=== PATIENT | female | born 1960 | race Caucasian/White ===

== ENCOUNTER 2022-08-17 14:52 | Outpatient (CLI) | payer OTHER, SELFPAY ==
--- NOTE | 2022-08-17 15:00 | CRLHL7_ITS ---
For Patients: As a result of the Century Cures Act, medical imaging exams and procedure reports are released immediately into your electronic medical record. You may view this report before your referring provider. If you have questions, please contact your health care provider. BILATERAL SCREENING MAMMOGRAM WITH COMPUTER-AIDED DETECTION AND TOMOSYNTHESIS TECHNIQUE: CC and MLO views were obtained. These mammographic images have been obtained using full-field digital technique. These mammographic images were interpreted with the benefit of computer-aided detection. Breast Tomosynthesis was used in this interpretation. COMPARISON FILM: 06/18/21, 05/23/20, 03/23/19. FINDINGS: The breasts are heterogeneously dense, which may obscure small masses IMPRESSION: There is no radiographic evidence for malignancy. ASSESSMENT: BI-RADS Category 1: Negative RECOMMENDATION: Routine screening mammogram in 1 year. A lay language report of this examination will be provided to the patient. Dylan Drake M.D. Diagnostic Radiologist [email or web address] JOSE/Dictated by: Dylan Drake MD @ 08/18/2022 9:09:00 AM (Electronically Signed)
== END 2022-08-17 14:53 | disposition home or self-care (01) ==
LOC: MAMMO 14:53
PROVIDERS: PCP Family Medicine; Visit Provider Family Medicine
DX: Z12.31 Encounter for screening mammogram for malignant neoplasm of breast (principal); R92.2 Inconclusive mammogram
CPT/HCPCS: 77063; 77067

== ENCOUNTER 2023-08-24 15:05 | Outpatient (CLI) | payer OTHER, SELFPAY ==
--- NOTE | 2023-08-24 15:20 | CRLHL7_ITS ---
For Patients: As a result of the Cures Act, medical imaging exams and procedure reports are released immediately into your electronic medical record. You may view this report before your referring provider. If you have questions, please contact your health care provider. BILATERAL SCREENING MAMMOGRAM WITH COMPUTER-AIDED DETECTION AND TOMOSYNTHESIS TECHNIQUE: CC and MLO views were obtained. These mammographic images have been obtained using full-field digital technique. These mammographic images were interpreted with the benefit of computer-aided detection. Breast Tomosynthesis was used in this interpretation. COMPARISON FILM: 08/17/22, 06/18/21, 05/23/20. FINDINGS: The breasts are heterogeneously dense, which may obscure small masses IMPRESSION: There is no radiographic evidence for malignancy. ASSESSMENT: BI-RADS Category 1: Negative RECOMMENDATION: Routine screening mammogram in 1 year. A lay language report of this examination will be provided to the patient. Dylan Drake M.D. Diagnostic Radiologist [email or web address] BING/beverley / be/Dictated by: Dylan Drake MD @ 08/25/2023 12:50:00 PM (Electronically Signed)
== END 2023-08-24 15:06 | disposition home or self-care (01) ==
PROVIDERS: PCP Family Medicine; Visit Provider Family Medicine
DX: Z12.31 Encounter for screening mammogram for malignant neoplasm of breast (principal); R92.2 Inconclusive mammogram
CPT/HCPCS: 77063; 77067

== ENCOUNTER 2024-09-20 14:18 | Outpatient (CLI) | payer OTHER, MEDICARE, SELFPAY ==
--- NOTE | 2024-09-20 14:40 | CRLHL7_ITS ---
For Patients: As a result of the Century Cures Act, medical imaging exams and procedure reports are released immediately into your electronic medical record. You may view this report before your referring provider. If you have questions, please contact your health care provider. BILATERAL SCREENING MAMMOGRAM WITH COMPUTER-AIDED DETECTION AND TOMOSYNTHESIS TECHNIQUE: CC and MLO views were obtained. These mammographic images have been obtained using full-field digital technique. These mammographic images were interpreted with the benefit of computer-aided detection. Breast Tomosynthesis was used in this interpretation. COMPARISON FILM: 08/24/23, 08/17/22, 06/18/21. FINDINGS: The breasts are heterogeneously dense, which may obscure small masses IMPRESSION: There is no radiographic evidence for malignancy. ASSESSMENT: BI-RADS Category 1: Negative RECOMMENDATION: Routine screening mammogram in 1 year. A lay language report of this examination will be provided to the patient. Dylan Drake M.D. Diagnostic Radiologist [email or web address] JOSE/Dictated by: Dylan Drake MD @ 09/21/2024 10:12:00 AM (Electronically Signed)
== END 2024-09-20 14:19 | disposition home or self-care (01) ==
LOC: MAMMO 14:26
PROVIDERS: PCP Family Medicine; Visit Provider Family Medicine
DX: Z12.31 Encounter for screening mammogram for malignant neoplasm of breast (principal); R92.333 Mammographic heterogeneous density, bilateral breasts
CPT/HCPCS: 77063; 77067

== ENCOUNTER 2024-12-13 15:00 | Outpatient (RCR) | payer MEDICARE, BC, SELFPAY ==
--- OUTSIDE RECORDS SUMMARY | 2024-11-29 12:55 | XMS_ITS | Clinical Summary ---
Author Organization [employer] [facility] Address [place], [place] [address] Care Team Providers Care Consulting Actuary Name Role Phone Rena Olivier MD Unavailable [phone] Renay Hart DO Primary Care Provider [phone] Allergies No known active allergies Medications DMEIndications:C ongenital absence of arm and forearm, left Left upper extremity prosthesis 1 unit 0 6 Active ibuprofen (ADVIL; MOTRIN) 200 mg tablet Take 3-4 tablets by mouth every 6 hours if needed for Pain. 0 8 Active multivitamin capsule Take 1 capsule by mouth once daily. 0 8 Active zinc 50 mg tablet Take 1 tablet by mouth once daily. 0 8 Active ygoi-mnpl-xvo-thompson e-qiq-aoxa-hor [id number] mg tab Take by mouth. 0 8 Active clobetasol cream 0.05% (TEMOVATE) 0.05 % cream APPLY SPARINGLY TO AFFECTED AREA TWICE DAILY 0 Active fluorouracil 5% topical (EFUDEX) 5 % cream APPLY TOPICALLY ONCE WEEKLY 0 Active estradioL (VAGIFEM) 10 mcg tab vaginal tabletIndication s:Menopausal vaginal dryness INSERT 1 TABLET BY VAGINAL ROUTE EVERY TUESDAY AND TUESDAY 24 Tablet 2 4 Active polyethylene glycol-electroly te (GOLYTELY) 236-22.74-6.74 -5.86 gram suspensionIndica tions:Encounter for screening colonoscopy Drink 2 liters the day before the procedure and 2 liters 6 hours prior to procedure. 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 Adenomatous colon polyp 11/13/2019 Overview (11/13/2019): Colonoscopy 10/2019 polyp, repeat in 5 years DJD (degenerative joint disease) 06/28/2014 Onychomycosis 03/17/2011 Diverticulosis of colon (without mention of hemo rrhage) 12/15/2009 Resolved Problems Problem Noted Date Diagnosed Date Resolved Date Screen for colon cancer 12/15/200903/2023 Overview (12/15/2009): Colonoscopy 11/2009 diverticulosis repeat in 10 years Encounters Date Type Department Care Team Description 11/26/2024 Orders Only [facility] Scanner 1 scan: (1-Ord) TAREEN DERM, EXCISION COMPOUND NEVUS, 11/26/2024 10/23/2024 Telephone [facility] [address] [facility] [place] [address] Sami Duque MD Screening 10/16/2024 3:[address] SQL DEVELOPER Ancillary Procedure [facility] [address] [facility] [place] [address] 10/16/2024 Travel 10/16/2024 Orders Only [facility] [address] [facility] [place] [address] Sami Duque MD <No scans attached> 10/15/2024 Orders Only [facility] Scanner 1 scan: (1-Ord) TAREEN DERMATOLOGY, CURETTAGE and DESTRUCTION, 10/15/2024 10/11/2024 Travel 10/04/2024 Telephone [facility] [address] [place] [address] Renay Hart, DO 09/24/2024 Orders Only [facility] [address] [place] [address] Renay Hart, 1 scan: (1-Ord) [facility], BILAT SCREENING CAD AND NANNETTE, 09/20/2024 09/14/2024 8:20 AM CDT Office Visit [facility] [address] [place] [address] Renay Hart, Medicare WELCOME Visit 09/14/2024 Telephone [facility] [address] [place] [address] Renay Hart, Returning Call 09/14/2024 Telephone [facility] [address] [place] [address] Renay Hart, Appointment 09/14/2024 Travel 09/10/2024 Orders Only [facility] Scanner 1 scan: (1-Ord) TAREEN DERMATOLOGY , SHAVE BIOPSY; FULL BODY SKIN EXAM , 09/10/2024 09/09/2024 Travel from Last 3 Months Immunizations Name Administration Dates Next Due Hepatitis A (Adult) 08/30/2002,01/29/2002 Hepatitis B (Adult) 08/30/2002,04/02/2002,2001 Influenza A (H1N1), Inactiva julianna (Age >=3 Years) 09/30/2009 Influenza, IIV3 (Age 6-35 mos) 08/19/2011 Influenza, IIV3 (Age >=3 years) 08/08/2015,08/19,09/09/2009 Influenza, IIV4 08/29/2020, 9,10/25/2018,2016 Influenza, IIV4 (=>6mos) MDV 09/06/2017,10/06/20 16 Influenza,CCIIV4 PRESERV FREE 12/04/2021 Td (Age >=7 Years) 11/30/2019,04/03/1998 Tdap 08/04/2010 Zoster (Shingrix-RZV, recombinant) 07/29/2022, Family History Medical History Relation Name Comments No Known Problems Brother Heart Disease Father first IA in 40 s Other Father copd Other Mother lung, kidney ca ncer No Known Problems Sister 1 No Known Problems Sister 2 Relation Name Status Comments Brother Alive Father Mother Sister 1 Alive Sister 2 Alive Social History Tobacco Use Types Packs/Day Years Used Date Smoking Tobacco: Former Cigarettes 0.3 31 0 11/28/1977 - 11/28/2008 Smokeless Tobacco: Never Tobacco Cessation:Counseling Given: Not Answered Comments:Patient states a few cigarettes weekly. Alcohol Use Standard Drinks/Week Comments Yes 7 (1 standard drink = 0.6 oz pur e alcohol) [facility] Utilities Answer Date Recorded Do you have trouble paying f or utilities (for example, heat, electricity, water, phone)? Yes 09/14/2024 PHQ-2 Answer Date Recorded PHQ-2 TOTAL SCORE 0 09/14/2024 Social Connections Answer Date Recorded Do you often feel lonely or isolated from those around you? 0 09/14/2024 Financial Resource Strain Answer Date R ecorded Difficulty of Paying Living Expenses 3 09/14/2024 Difficulty of Paying Living Expenses Not on file 09/14/2024 Food Insecurity Answer Date Recorded Do you worry your food will run out before you are able to buy more? 1 09/14/2024 Transportation Needs Answer Date Record ed Does lack of transportation keep you from medica l appointments? 1 09/14/2024 Does lack of transportation keep you from work, meetings or getting things that you need? 1 09/14/2024 Housing Stability Answer Date Recorded What is your housing situation today? 1 09/14/2024 Comments No Sex and Gender Information Value Date Recorded Sex Assigned at Not on file Legal Sex Female 5:[address] SQL DEVELOPER Gender Identity Not on file Sexual Orientation Not on file Obstetrics History Para Term AB IAB SAB Ectopic Multiple Livin g Live Births 0 0 0 0 0 0 0 0 0 0 0 Last Filed Vital Signs Vital Sign Reading Time Taken Comments Blood Pressure 134/80 09/14/2024 8:13 AM CDT Pulse 76 09/14/2024 8:13 AM CDT Temperature 36.7 C (98.1 F) 08/29/2020 7:51 AM CDT Respiratory Rate 16 07/20/2019 8:34 AM CDT Oxygen Saturation 99% 09/01/2023 3:58 PM CDT Inhaled Oxygen Concentration - - Weight 78.1 kg (172 lb 3.2 oz) 09/14/2024 8:13 A M CDT Height 169 cm (5' 6.54) 09/14/2024 8:13 AM CDT Body Mass Index 27.35 09/14/2024 8:13 AM CDT Plan of Treatment Upcoming Encounters Date Type Department Care Team (Late st Contact Info) Description 01/28/2025 3:[address] SQL DEVELOPER Office Visit [facility] [address] [place] [address] Renay Hart DO [address] [place] [address] 02/01/2025 7:[address] SQL DEVELOPER Office Visit [facility] [address] [place] [id number] Sami Duque MD [address] [place] [address] Health Maintenance Due Date Last Done Comments Pneumococcal series for age 50+ (1 of 1 - PCV) 2009 Medicare Wellness for age 65+ 2024 COVID-19 vaccine series ( season) 2024 03/05/2021, 02/05/2021 Influenza for age 65+ 07/29/2024 12/04/2021 , 08/29/2020, 11/08/2019, Additional history exists Colonoscopy through age 75 11/12/202411/12, 11/12/2019, 11/09/2019, Additional history exists BMI (ht and wt on same day) for age 18+ 09/14/2025 09/14/2024, 09/01/2023, 10/11/2022, Additional history exists Depression screening for age 12+ 09/14/2025 09/14/2024, 10/15/2021, 08/29/2020, Additional history exists Mammogram for age 45-75 09/20/2025 09/20/20, 08/24/2023, 08/17/2022, Additional history exists Lipids for age 45-75 09/14/2029 09/14/2024, 09/01/2023, 10/11/2022, Additional history exists Tetanus booster 11/30/2029 11/30/2019, 05/2010, 04/03/1998 RSV vaccine for adults or (1 - 1-dose 75+ series) 2034 Tdap Completed 08/04/2010 Hepatitis C screening for ag e 18-79 Completed 10/15/2021 Zoster (shingles) series for age 50+ Completed 07/29/2022, 04/02/2022 HIV for age 15-65 Completed 09/01/2023 DEXA/DXA scan for age 65+ Completed 10/16/2024 Procedures Procedure Name Priority Date/Time Associated Diagnosis Comments SCAN-OPERATIVE/PROC EDURE REPORT 11/26/2024 12:[address] SQL DEVELOPER XR DXA BONE DENSITY 2 SITES AXIAL Routine 10/16/2024 3:[address] SQL DEVELOPER Postmenopausal SCAN-OPERATIVE/PROC EDURE REPORT 10/15/2024 12:[address] SQL DEVELOPER XR MAMMO NANNETTE BILAT SCREEN Routine 09/20/2024 12:00 AM CDT Breast cancer screening by mammogram GLUCOSE, FASTING Routine 09/14/2024 8:50 AM CDT Routine general medical examination at a health care facility LIPID PANEL W REFLEX MEASURED LDL Routine 09/14/2024 8:50 AM CDT Hyperlipidemia, unspecified hyperlipidemia type SCAN-OPERATIVE/PROC EDURE REPORT 09/10/2024 12:00 AM CDT ANTI HIV 1/2 Routine 09/01/2023 4:22 PM CDT Screening for HIV (human immunodeficiency virus) ANTI HCV Routine 10/15/2021 10:[address] SQL DEVELOPER Need for hepatitis C screening test COLONOSCOPY SCREENING Routine 11/12/2019 12:[address] SQL DEVELOPER Special screening for malignant neoplasms, colon from Last 3 Months or Most Recently Relevant to Health Maintenance Results * SCAN-OPERATIVE/PROCEDURE REPORT (11/26/2024 12:[address] SQL DEVELOPER) us Scanner OTHER Final Result * (ABNORMAL) XR DXA BONE DENSITY 2 SITES AXIAL [16020.1] (10/16/2024 3:[address] SQL DEVELOPER) Anatomical Region Laterality Modality Spine, HIPS, HIPL, HIPR Other Impressions 10/19/2024 4:[address] SQL DEVELOPER Osteopenia. RECOMMENDATIONS: The National Osteoporosis Foundation recommends pharmacologic treatment for patients with T-scores of -2.5 or less, patients with prior history of fragility fractures, or patients with 10-year probability of greater than 3% at hips or greater than 20% of suffering major osteoporotic fractures. Recommend continued optimization of calcium and vitamin D intake through dietary means and/or supplementation and regular exercise. Repeat scan recommended in 3-5 years. Eli Oliva PA-C [facility] 10/19/2024 Narrative 10/19/2024 4:[address] SQL DEVELOPER For Patients: Results are automatically released to your [employer] ([employer]) account once available, in compliance with federal regulations. This means that you may see your results before your provider has had a chance to review them. Please allow 2-3 business days for your provider to comment on the results. XR DXA Bone Mineral Density (BMD) EXAM LOCATION: [address] [address] PATIENT NAME: Deb Posadas DATE OF : 1960 EXAM DATE: 10/16/2024 REQUESTING PROVIDER: Renay Hart DO GENDER AT : female HEIGHT: 5' 6.54 (09/14/2024) WEIGHT: 172 lb 3.2 oz (09/14/2024) MENOPAUSAL STATUS: Postmenopausal RACE/ETHNICITY: White RISK FACTORS: Smoking (prior) and White Race CURRENT MEDICATION FOR BONE LOSS: NONE INDICATION: Post-Menopause COMPARISON DATE(S): None DXA scans are compared to prior studies for a patient only when the two (or more) studies were performed on the same scanner. It is not possible to compare data generated on one scanner to data from another because there are not standards in DXA equipment. This applies even if the two scanners are made by the same mycologist. PROCEDURE: Dual-energy x-ray absorptiometry performed with routine technique. Reporting is completed in the form of a T-score. The T-score represents the standard deviation from peak bone mass based on young healthy adult. A Z-score is used for diagnosis in premenopausal women, and for men under the age of 50. FINDINGS: RESULT LUMBAR SPINE L1 - L2 BMD: 1.049 g/cm2 T-Score: - 1.0 Z-Score: + 0.1 Change from prior: None RESULTS FEMUR Left femoral neck BMD: 0.899 g/cm2 T-Score: - 1.0 Z-Score: + 0.2 Change from prior: None Right femoral neck BMD: 0.888 g/cm2 T-Score: - 1.1 Z-Score: + 0.1 Change from prior: None Left hip BMD: 0.934 g/cm2 T-Score: - 0.6 Z-Score: + 0.3 Change from prior: None Right hip BMD: 0.898 g/cm2 T-Score: - 0.9 Z-Score: + 0.0 Change from prior: None WHO criteria: Normal: T-score at or above -1 SD Osteopenia: T-score between -1.1 and -2.4 SD Osteoporosis: T-score at or below -2.5 SD FRAX RISK CALCULATION (USED FOR OSTEOPENIA ONLY): 10-year probability of major osteoporotic fracture: 8.1%. 10-year probability of hip fracture: 0.6%. Renay Hart DO DEXA Final Resu lt * SCAN-OPERATIVE/PROCEDURE REPORT (10/15/2024 12:[address] SQL DEVELOPER) us Scanner OTHER Final Result * XR MAMMO NANNETTE BILAT SCREEN [[id number]] (09/20/2024 12:00 AM CDT) Anatomical Region Laterality Modality BREASTS, Breast Left, Breast Right Bilateral Mammography us Renay Pateler DO MAMMO Final Resu lt * (ABNORMAL) LIPID PANEL W REFLEX MEASURED LDL (09/14/2024 8:50 AM CDT) [facility] Signature CHOLESTEROL, TOTAL 256(H) <200 mg/dL [facility] HDL CHOLESTEROL 65 > OR = 50 mg/dL [facility] TRIGLYCERIDES 218(H) <150 mg/dL [facility] Comment: If a non-fasting specimen was collected, consider repeat triglyceride testing on a fasting specimen if clinically indicated. Jo Ann et al. J. of Clin. Lipidol. 2015;9:129-169. LDL-CHOLESTEROL 152(H) mg/dL (calc) [facility] Comment: Reference range: <100 Desirable range <100 mg/dL for primary prevention; <70 mg/dL for patients with CHD or diabetic patients with > or = 2 CHD risk factors. LDL-C is now calculated using the Asher calculation, which is a validated novel method providing better accuracy than the Friedewald equation in the estimation of LDL-C. Sami SS et al. ANGELITA. 2013;310(19): 2864-9736 (http://education.CultureAlley/faq/HRJ646) CHOL/HDLC RATIO 3.9 <5.0 (calc) [facility] NON HDL CHOLESTEROL 191(H) <130 mg/dL (calc) [facility] Comment: For patients with diabetes plus 1 major ASCVD risk factor, treating to a non-HDL-C goal of <100 mg/dL (LDL-C of <70 mg/dL) is considered a therapeutic option. Blood BLOOD SPECIMEN / Unknown 09/14/2024 8:50 AM CDT 09/14/2024 8:50 AM CDT us Renay Hart DO CHEMISTRY Final Resu lt [facility] [address] [place] [address], [facility] [address] [place] [address] * (ABNORMAL) GLUCOSE, FASTING (09/14/2024 8:50 AM CDT) [facility] GLUCOSE 100(H) 65 - 99 mg/dL [facility] Comment: Fasting reference interval For someone without known diabetes, a glucose value between 100 and 125 mg/dL is consistent with prediabetes and should be confirmed with a follow-up test. Blood BLOOD SPECIMEN / Unknown 09/14/2024 8:50 AM CDT 09/14/2024 8:50 AM CDT Renay Hart DO CHEMISTRY Final Resu lt [facility] [address] [place] [address], [facility] [address] [place] [address] * SCAN-OPERATIVE/PROCEDURE REPORT (09/10/2024 12:00 AM CDT) Scanner OTHER Final Result * ANTI HIV 1/2 [[id number]] (09/01/2023 4:22 PM CDT) [facility] HIV-1/HIV-2 SCREEN Non-Reacti ve Non-Reacti ve 09/02/2023 2:47 PM CDT [facility] Comment:HIV-1 p24 and HIV-1/ HIV-2 Ab Not Detected. Blood BLOOD SPECIMEN / Unknown Venipuncture / Unknown 09/01/2023 4:22 PM CDT 09/01/2023 4:22 PM CDT us Renay Hart DO SEND OUTS Final Resu lt [facility] [address] [place] [address], [place] * ANTI HCV (10/15/2021 10:[address] SQL DEVELOPER) [facility] HEPATITIS C ANTIBODY Non-React israel Non-React israel 10/15/2021 7:[address] SQL DEVELOPER [facility] Comment:Antibodies to HCV no t detected; does not exclude the possibility of exposure to HCV. Blood BLOOD SPECIMEN / Unknown Venipuncture / Unknown 10/15/2021 10:[address] SQL DEVELOPER 10/15/2021 10:[address] SQL DEVELOPER Zuleika Duomnt MD SEND OUTS Final Result [facility] [address] [place] [address], [place] * COLONOSCOPY SCREENING (11/12/2019 12:[address] SQL DEVELOPER) us Sami Duque MD GI PROCEDURE ORD Final Re sult from Last 3 Months or Most Recently Relevant to Health Maintenance Insurance [employer] [place] [address] Care Teams Consulting Actuary Relationship Specialty Start Date End Date [place] [address] [address] PCP - General Family Practice 09/01/23 Rena Olivier MD [address] [place], [place] [id number] Rheumatology Rheumatology 07/20/19
== END 2024-12-14 09:00 | disposition home or self-care (01) ==
PROVIDERS: PCP Family Medicine; Visit Provider Family Medicine
DX: M19.041 Primary osteoarthritis, right hand (principal); M19.011 Primary osteoarthritis, right shoulder; Z51.89 Encounter for other specified aftercare
CPT/HCPCS: 97110; 97140; 97162; 97165; 97535

== ENCOUNTER 2025-02-01 07:17 | Outpatient (CLI) | payer MEDICARE, BC, SELFPAY ==
--- NOTE | 2025-02-01 08:34 | W.ANESCHARGE ---
Anesthesia Charges Start Date/Time Anesthesia Start Date: 02/01/25 Anesthesia Start Time: 08:07 Stop Date/Time Anesthesia Stop Date: 02/01/25 Anesthesia Stop Time: 08:20 Coding CPT Codes CPT Codes: VAL LWR INTST SCR COLSC - 10351 ([id number]) P1 - NORMAL HEALTHY PATIENT, QX - MARKET DIRECTOR SVHoang W/ MED DIRECTION, QK - PAPER PATTERN FOLDER 2-4 CNCRNT ANETamiko PROC
--- NOTE | 2025-02-01 08:36 | W.ANESCHARGE ---
Anesthesia Charges Start Date/Time Anesthesia Start Date: 02/01/25 Anesthesia Start Time: 08:07 Stop Date/Time Anesthesia Stop Date: 02/01/25 Anesthesia Stop Time: 08:30
--- NOTE | 2025-02-01 09:23 | W.ANESCHARGE ---
Anesthesia Charges Start Date/Time Anesthesia Start Date: 02/01/25 Anesthesia Start Time: 08:07 Stop Date/Time Anesthesia Stop Date: 02/01/25 Anesthesia Stop Time: 08:30 Coding CPT Codes CPT Codes: ANES LWR INTST NDSC NOS - 13174 ([id number]) QX - HOIST OPERATOR SVC W/ MED DIRECTION, QK - TIMBER FRAMER HELPER 2-4 CNCRNT ANES PROC, P1 - NORMAL HEALTHY PATIENT
== END 2025-02-01 07:18 | disposition home or self-care (01) ==
PROVIDERS: PCP Family Medicine; Visit Provider Internal Medicine Gastroenterology
DX: Z12.11 Encounter for screening for malignant neoplasm of colon (principal); K57.30 Diverticulosis of large intestine without perforation or abscess without bleeding; Z86.0101 Personal history of adenomatous and serrated colon polyps
CPT/HCPCS: 00811; 00812; 45378; J2704